=== PATIENT | female | born 1940 | race Caucasian/White ===

== ENCOUNTER → 2016-10-28 | Outpatient (CLI) | payer MEDICARE, OTHER ==
[~2016-10-28] MED LIST: COMBIVENT INH14.7 GM INH; PRILOSEC PO; SINGULAIR PO; ZOLOFT PO; ZYRTEC PO
--- NOTE | ~2016-10-28 | MY11 ---
[facility] A Service of [facility] RADIOLOGY TEXT RESULTS PATIENT: JULIO BAILEY LOCATION: [facility] : 44 UNIT #: [id number] AGE: [address]: Jitendra Smith MD SEX: F ORDER DR: [id number] [facility] [address] [place], [place] [address] [id number] O MR#: [id number] Acc #: [id number] NAME: JULIO BAILEY : 1940 SEX: F STUDY DATE/TIME: 10/28/2016 13:27 UNIT: [facility] ROOM: STUDY DESCRIPTION: MY Mammogram Screening Dig Pk Attending Physician: Jitendra Smith M.D. Referring Physician: Jitendra Smith M.D. Ordering Physician: Jitendra Smith M.D. Primary Care Physician: Jitendra Smith M.D. MEDICAL IMAGING REPORT This report is preliminary unless electronic signature is present EXAM Bilateral Digital Screening Mammogram with CAD INDICATION Breast cancer screening. 76-year-old asymptomatic female. No personal or family history of breast cancer. COMPARISON October 27, 2015; October 06, 2014; May 18, 2012; May 15, 2011; May 12, 2009. FINDINGS There are scattered fibroglandular tissues. No suspicious findings are present. IMPRESSION No mammographic evidence of malignancy. Annual screening mammography and clinical breast exam are recommended. A result letter will be sent to the patient. Patients over the age of 40 are entered into a reminder system with target due date for the next mammogram. BIRADS: 1 Negative Dictated by... Samson Park M.D. THIS IS AN ELECTRONICALLY VERIFIED REPORT Samson Park M.D. at 10/28/2016 5:36 PM ADRIAN/soraida [facility] A Service of [facility] & [facility] RADIOLOGY TEXT RESULTS PATIENT: JULIO BAILEY LOCATION: [facility] : 44 UNIT #: [id number] AGE: [address]: Jitendra Smith MD SEX: F ORDER DR: TD: 10/28/2016 16:52 JOB #: [id number] MEDICAL IMAGING REPORT Page 1 of 1 COPY
== END | disposition home or self-care (01) ==
LOC: CWCC 12:58
DX: Z12.31 Encounter for screening mammogram for malignant neoplasm of breast (principal)
CPT/HCPCS: G0202